=== PATIENT | male | born 1965 | race Caucasian/White ===

== ENCOUNTER 2019-01-25 18:41 | Inpatient (IN) | payer MEDICAID ==
[~2019-01-25] VITALS: Ht 177.8 cm; Wt 71.7 kg
[2019-01-25] MEDS ORDERED: LORAZEPAM 1MG TABLET PO ONE (22:30)
[2019-01-25] MEDS ORDERED: ALBUTEROL (0.083%) 2.5MG/3ML NEB HHN ONE (22:45)
[2019-01-25 23:10] LABS: BASOPHILS % 1.1 % (0.0-2.0); HEMATOCRIT. 46.7 % (42.0-52.0); HEMOGLOBIN. 15.1 g/dL (14.0-18.0); LYMPHOCYTES % 25.2 % (20.0-50.0); MEAN CORPUSCULAR HEMOGLOBIN 28.3 pg (28.0-32.0); MEAN CORPUSCULAR VOLUME 87.6 fL (80.0-94.0); MEAN PLATELET VOLUME 10.7 fl (7.4-10.4); NEUTROPHILS % 57.7 % (40.0-76.0); PLATELET 150 x1000/uL (130-400); RED BLOOD CELL COUNT 5.33 mill/uL (4.7-6.1); RED CELL DISTRIBUTION WIDTH 19.1 % (11.6-14.6)
[2019-01-25 23:15] LABS: CHLORIDE 111 mEq/L (98-107)
[2019-01-25 23:21] LABS: ETHANOL BLOOD < 10 mg/dL
[2019-01-26] MEDS ORDERED: ASPIRIN 81MG TABLET PO ONE (00:30)
[2019-01-26] MEDS ORDERED: FUROSEMIDE 40MG/4ML VIAL IV ONE (00:30)
[2019-01-26 08:19] LABS: *AMPHETAMINES SCREEN URINE PRESUMTIVE POSITIVE (NEGATIVE); *BARBITURATES SCREEN URINE NEGATIVE (NEGATIVE)
[2019-01-26 08:20] LABS: *BENZODIAZEPINES SCREEN URINE NEGATIVE (NEGATIVE); *COCAINE SCREEN URINE NEGATIVE (NEGATIVE); CANNABINOID URINE SCREEN NEGATIVE (NEGATIVE); METHADONE URINE SCREEN NEGATIVE (NEGATIVE); OPIATES URINE SCREEN NEGATIVE (NEGATIVE)
[2019-01-26 08:21] LABS: PHENCYCLIDINE URINE SCREEN NEGATIVE (NEGATIVE)
[2019-01-26 08:45] VITALS: BP 120/74
[2019-01-26 09:18] VITALS: BP 120/74
[2019-01-26] MEDS ORDERED: ONDANSETRON HCL 4MG/2ML INJ IV PRN (10:15)
[2019-01-26] MEDS ORDERED: HYDROCODONE/ACETAMINOPHEN 10/325MG TABLET PO PRN (10:15)
[2019-01-26] MEDS ORDERED: GUAIFENESIN 200MG/10ML SUGAR FREE UDC PO PRN (10:15)
[2019-01-26] MEDS ORDERED: IPRATROPIUM/ALBUTEROL 0.5-3(2.5)MG/3ML NEB HHN PRN (10:15)
[2019-01-26] MEDS ORDERED: ACETAMINOPHEN 325MG TABLET PO PRN (10:15)
[2019-01-26] MEDS ORDERED: DOCUSATE SODIUM 100MG CAPSULE PO PRN (10:15)
[2019-01-26] MEDS ORDERED: NA PHOS,M-B/NA PHOS,DI-BA ENEMA 118ML PR PRN (10:15)
[2019-01-26] MEDS ORDERED: MAGNESIUM/ALUMINUM HYDROXIDE/SIMETHICONE 30ML UDC PO PRN (10:15)
[2019-01-26] MEDS ORDERED: MORPHINE SULFATE 2 MG/ML CPJ (NOT FOR IM USE) IV PRN (10:15)
[2019-01-26] MEDS ORDERED: DIPHENHYDRAMINE 50MG/ML VIAL IV PRN (10:15)
[2019-01-26] MEDS ORDERED: CLONIDINE 0.1MG TABLET PO PRN (10:15)
[2019-01-26] MEDS: ENOXAPARIN 40MG/0.4ML SYR SUBCUT SCH (12:18)
[2019-01-26 12:30] VITALS: BP 131/64
[2019-01-26] MEDS: SODIUM CHLORIDE 0.9% INJ 3ML FLUSH IVF SCH ×2 (13:41→21:11)
[2019-01-26] MEDS: LORAZEPAM 2MG/ML CPJ IV PRN ×2 (13:46→17:19)
[2019-01-26 16:00] VITALS: BP 131/91
[2019-01-26] MEDS: MONTELUKAST SODIUM 10MG TABLET PO SCH (17:19)
[2019-01-26] MEDS: FUROSEMIDE 40MG/4ML VIAL IVP SCH (17:20)
[2019-01-26 20:00] VITALS: BP 127/86
[2019-01-26] MEDS: FAMOTIDINE 20MG TABLET PO SCH (20:46)
[2019-01-26] MEDS: BUDESONIDE 0.5MG/2ML NEB HHN SCH (20:55)
[2019-01-26] MEDS: IPRATROPIUM/ALBUTEROL 0.5-3(2.5)MG/3ML NEB HHN SCH (20:56)
[2019-01-27] VITALS: BP 126/91
[2019-01-27 01:55] LABS: CREATINE KINASE MB FRACTION 2.6 ng/mL (0.5-3.6)
[2019-01-27] MEDS: IPRATROPIUM/ALBUTEROL 0.5-3(2.5)MG/3ML NEB HHN SCH ×4 (03:33→20:32)
[2019-01-27 04:00] VITALS: BP 105/71
[2019-01-27] MEDS: FUROSEMIDE 40MG/4ML VIAL IVP SCH ×2 (06:12→17:48)
[2019-01-27] MEDS: SODIUM CHLORIDE 0.9% INJ 3ML FLUSH IVF SCH ×3 (06:13→21:35)
[2019-01-27 08:09] LABS: BASOPHILS % 0.7 % (0.0-2.0); EOSINOPHILS % 10.6 % (0.0-5.0); HEMATOCRIT. 45.5 % (42.0-52.0); HEMOGLOBIN. 14.7 g/dL (14.0-18.0); LYMPHOCYTES % 26.4 % (20.0-50.0); MEAN CORPUSCULAR HEMOGLOBIN 28.1 pg (28.0-32.0); MEAN CORPUSCULAR VOLUME 87.1 fL (80.0-94.0); MEAN PLATELET VOLUME 10.6 fl (7.4-10.4); MONOCYTES % 10.1 % (2.0-8.0); NEUTROPHILS % 52.2 % (40.0-76.0); PLATELET 142 x1000/uL (130-400); RED BLOOD CELL COUNT 5.22 mill/uL (4.7-6.1); RED CELL DISTRIBUTION WIDTH 18.8 % (11.6-14.6)
[2019-01-27 08:22] LABS: CHLORIDE 104 mEq/L (98-107)
[2019-01-27 08:30] LABS: LDL CHOLESTEROL 69 mg/dL (5-100)
[2019-01-27 08:32] LABS: HDL CHOLESTEROL 23 mg/dL (40-59)
[2019-01-27] MEDS: BUDESONIDE 0.5MG/2ML NEB HHN SCH ×2 (08:54→20:32)
[2019-01-27] MEDS ORDERED: FUROSEMIDE 40MG/4ML VIAL IVP SCH (09:00)
[2019-01-27] MEDS: ASPIRIN 81MG EC TABLET PO SCH (09:34)
[2019-01-27] MEDS: LORATADINE 10MG TABLET PO SCH (09:34)
[2019-01-27] MEDS: FAMOTIDINE 20MG TABLET PO SCH ×2 (09:35→21:35)
[2019-01-27 12:00] VITALS: BP 102/60
[2019-01-27] MEDS: ENOXAPARIN 40MG/0.4ML SYR SUBCUT SCH (12:32)
[2019-01-27 13:06] LABS: T4 FREE 1.43 ng/dL (0.76-1.46)
[2019-01-27 16:00] VITALS: BP 115/72
[2019-01-27] MEDS: MONTELUKAST SODIUM 10MG TABLET PO SCH (17:48)
[2019-01-27 20:00] VITALS: BP 106/58
[2019-01-28] MEDS: IPRATROPIUM/ALBUTEROL 0.5-3(2.5)MG/3ML NEB HHN SCH ×4 (00:23→20:42)
[2019-01-28] MEDS: SODIUM CHLORIDE 0.9% INJ 3ML FLUSH IVF SCH ×3 (05:45→21:01)
[2019-01-28] MEDS: FUROSEMIDE 40MG/4ML VIAL IVP SCH ×2 (06:29→17:24)
[2019-01-28 08:00] VITALS: BP 99/60
[2019-01-28] MEDS: LORATADINE 10MG TABLET PO SCH (08:47)
[2019-01-28] MEDS: ASPIRIN 81MG EC TABLET PO SCH (08:48)
[2019-01-28] MEDS: FAMOTIDINE 20MG TABLET PO SCH ×2 (08:48→20:21)
[2019-01-28] MEDS: BUDESONIDE 0.5MG/2ML NEB HHN SCH ×2 (08:55→20:42)
[2019-01-28 10:10] LABS: CREATINE KINASE MB FRACTION 1.7 ng/mL (0.5-3.6)
[2019-01-28] MEDS: ENOXAPARIN 40MG/0.4ML SYR SUBCUT SCH (11:57)
[2019-01-28 16:00] VITALS: BP 111/72
[2019-01-28] MEDS: MONTELUKAST SODIUM 10MG TABLET PO SCH (17:24)
[2019-01-28 20:44] VITALS: BP 109/63
[2019-01-29 00:43] VITALS: BP 100/65
[2019-01-29] MEDS: IPRATROPIUM/ALBUTEROL 0.5-3(2.5)MG/3ML NEB HHN SCH ×4 (01:45→21:21)
[2019-01-29 04:00] VITALS: BP 117/62
[2019-01-29] MEDS: FUROSEMIDE 40MG/4ML VIAL IVP SCH ×2 (06:34→17:12)
[2019-01-29] MEDS: SODIUM CHLORIDE 0.9% INJ 3ML FLUSH IVF SCH ×3 (06:35→21:04)
[2019-01-29 08:00] VITALS: BP 114/77
[2019-01-29] MEDS: ASPIRIN 81MG EC TABLET PO SCH (09:22)
[2019-01-29] MEDS: FAMOTIDINE 20MG TABLET PO SCH ×2 (09:22→20:56)
[2019-01-29] MEDS: LORATADINE 10MG TABLET PO SCH (09:22)
[2019-01-29 12:00] VITALS: BP 103/73
[2019-01-29] MEDS: ENOXAPARIN 40MG/0.4ML SYR SUBCUT SCH (12:01)
[2019-01-29] MEDS: BUDESONIDE 0.5MG/2ML NEB HHN SCH (13:49)
[2019-01-29 16:00] VITALS: BP 105/67
[2019-01-29] MEDS: MONTELUKAST SODIUM 10MG TABLET PO SCH (17:12)
[2019-01-29 20:00] VITALS: BP 104/62
[2019-01-29] MEDS: LORAZEPAM 2MG/ML CPJ IV PRN (21:04)
[2019-01-30] VITALS: BP 90/52
[2019-01-30] MEDS: IPRATROPIUM/ALBUTEROL 0.5-3(2.5)MG/3ML NEB HHN SCH ×3 (01:20→13:09)
[2019-01-30 04:00] VITALS: BP 105/69
[2019-01-30] MEDS: SODIUM CHLORIDE 0.9% INJ 3ML FLUSH IVF SCH (06:56)
[2019-01-30] MEDS: FUROSEMIDE 40MG/4ML VIAL IVP SCH (06:56)
[2019-01-30] MEDS: FAMOTIDINE 20MG TABLET PO SCH (09:08)
[2019-01-30] MEDS: LORATADINE 10MG TABLET PO SCH (09:08)
[2019-01-30] MEDS: ENOXAPARIN 40MG/0.4ML SYR SUBCUT SCH (11:38)
[2019-01-30 13:00] VITALS: BP 110/69
== END 2019-01-30 14:24 | disposition home or self-care (01) | DRG 194 ==
LOC: ER 18:41 → ENRESERV 01-26 07:14 → 6WST 01-26 08:39
PROVIDERS: ADMIT Internal Medicine; ATTEND Internal Medicine
DX: I11.0 Hypertensive heart disease with heart failure (principal); J96.00 Acute respiratory failure, unspecified whether with hypoxia or hypercapnia; R74.0 Nonspecific elevation of levels of transaminase and lactic acid dehydrogenase [LDH]; F15.10 Other stimulant abuse, uncomplicated; I50.43 Acute on chronic combined systolic (congestive) and diastolic (congestive) heart failure; F17.210 Nicotine dependence, cigarettes, uncomplicated; J98.11 Atelectasis; J45.909 Unspecified asthma, uncomplicated; B19.20 Unspecified viral hepatitis C without hepatic coma; Z59.0 Homelessness; Z88.2 Allergy status to sulfonamides
CPT/HCPCS: 36415; 71045; 80061; 80305; 80320; 82550; 82553; 83036; 83880; 84439; 84443; 84484; 85379; 93005; 93306; 94640; 99285; J1650; J1940; J2060; J7611; J7620; J7626; G0480